=== PATIENT | male | born 1950 | race African-American/Black ===

== ENCOUNTER 2020-04-02 15:09 | Emergency (ER) | payer MEDICARE ==
[~2020-04-02] VITALS: Ht 198.1 cm; Wt 148.8 kg
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
--- NOTE | 2020-04-02 15:48 | NUR ---
PATIENT TAKEN TO CT.
--- NOTE | 2020-04-02 16:30 | NUR ---
DR. SCHMITT AT BEDSIDE TO EXPLAIN TO THE PATIENT HE HAS A PNEUMOTHORAX, PATIENT IS REFUSING ANY TREATMENT FROM THIS MEDICAL FACILITY. DR. SCHMITT EXPLAINED ALL THE RISKS AND BENEFITS. PATIENT STATED HE WANTS TO GO TO [facility] FOR TREATMENT.
--- NOTE | 2020-04-02 16:40 | NUR ---
PATIENT A/OX4, EXPLAINED TO PATIENT MULTIPLE TIMES THE RISK OF LEAVING AMA. PT VERBALIZED UNDERSTANDING. PATIENT IS REFUSING TO SIGN ANY PAPERWORKS. DR. SCHMITT EXPLAINED THE CT RESULT AND GAVE THE COPY TO THE PATIENT.
--- NOTE | 2020-04-02 16:45 | NUR ---
PATIENT STATED HE NEVER WANTED TO COME HERE IN THIS HOSPITAL AND HE REQUESTED TO GO TO [facility]. HE REFUSED ANY TREATMENT IN THIS HOSPITAL.
--- NOTE | 2020-04-02 16:55 | NUR ---
PATIENT A/OX4, AMBULATORY WITH STEADY GAIT. NO RESPIRATORY DISTRESS NOTED.
--- NOTE | 2020-04-02 17:00 | NUR ---
PATIENT REFUSED TO SIGN THE HOMELESS DISCHARGE PAPERWORKS. Patient does not wish to proceed with medical care recommended by Dr. Casanova. Patient given information related to possible complications, up to and including , which could occur as a result of leaving the hospital at this time. Patient verbalizes understanding of risks involved due to leaving against medical advice. Patient has signed AMA form.
[2020-04-02 17:12] VITALS: BP 154/85
== END 2020-04-02 17:12 | disposition left against medical advice (07) ==
LOC: ER 15:17
DX: S22.31XA Fracture of one rib, right side, initial encounter for closed fracture (principal); J94.2 Hemothorax; Z59.0 Homelessness; Y08.89XA Assault by other specified means, initial encounter; Y93.89 Activity, other specified; Y92.89 Other specified places as the place of occurrence of the external cause; Y99.8 Other external cause status
CPT/HCPCS: 71250-TC